=== PATIENT | female | born 2000 | race Hispanic/Latino ===

== ENCOUNTER 2024-10-12 16:36 | Emergency (ER) | payer OTHER ==
[~2024-10-12 16:36] MED LIST: Iopamidol 370 76% 100 ML VIAL ONE
[2024-10-12] MEDS ORDERED: Acetaminophen 500 MG TAB ONE (18:04)
[2024-10-12 18:42] LABS: #Basophils 0.04 10x3/uL (0.0-0.2); #Eosinophils 0.04 10x3/uL (0.0-0.5); #Monocytes 0.48 10x3/uL (0.0-1.1); #Neutrophils 7.21 10x3/uL (1.5-8.4); %Basophils 0.5 % (0.0-2.0); %Eosinophils 0.5 % (0.0-6.0); %Lymphocytes 5.1 % (18.0-47.0); %Monocytes 5.8 % (0.0-10.0); %Neutrophils 87.1 % (40.0-75.0); ALT (SGPT) 29 U/L (8-55); AST (SGOT) 22 U/L (5-34); Albumin 2.9 g/dL (3.5-5.0); Alkaline Phosphatase 168 U/L (40-110); Anion Gap 15 mmol/L (10-20); BUN (Urea Nitrogen) 7 mg/dL (7.0-18.7); Bilirubin, Total 0.2 mg/dL (0.2-1.2); Calc. Creatinine Clearance 0 mL/min (70-130); Calcium 8.8 mg/dL (7.8-10.44); Carbon Dioxide 20 mmol/L (22-29); Chloride 103 mmol/L (98-107); Estimated GFR 125; Globulin 3.7 g/dL (2.4-3.5); Glucose 91 mg/dL (70-105); Hematocrit 36.7 % (34.9-44.5); Mean Corpuscular HGB CONC 32.7 g/dL (32.0-36.0); Mean Corpuscular Hemoglobin 25.3 pg (27.0-33.0); Mean Corpuscular Volume 77.3 fL (81.6-98.3); Mean Platelet Volume 11.5 fL (7.4-10.4); Platelet Count 261 10x3/uL (150-450); Potassium 3.8 mmol/L (3.5-5.1); Protein, Total 6.6 g/dL (6.0-8.3); RBC Distribution Width 13.2 % (11.5-14.5); Red Blood Cell (RBC) Count 4.75 10x6/uL (3.90-5.03); Sodium 134 mmol/L (136-145); Troponin I Less than 0.010 ng/mL (< 0.028); White Blood Cell (WBC) Count 8.3 10x3/uL (3.5-10.5)
== END 2024-10-12 21:04 | disposition home or self-care (01) ==
LOC: CSHERS 16:36
DX: O99.891 Other specified diseases and conditions complicating pregnancy (principal); J11.1 Influenza due to unidentified influenza virus with other respiratory manifestations; Z3A.32 32 weeks gestation of pregnancy
CPT/HCPCS: 71046; 71275; 80053; 84484; 85025; 85379; 87428; 93005; Q9967

== ENCOUNTER 2024-11-09 15:22 | Emergency (ER) | payer OTHER ==
[2024-11-09] MEDS ORDERED: hydrALAZINE 20 MG/ML VIAL ONE (16:16)
[2024-11-09 16:25] LABS: #Basophils 0.05 10x3/uL (0.0-0.2); #Eosinophils 0.21 10x3/uL (0.0-0.5); #Monocytes 0.48 10x3/uL (0.0-1.1); #Neutrophils 7.39 10x3/uL (1.5-8.4); %Basophils 0.5 % (0.0-2.0); %Lymphocytes 22.4 % (18.0-47.0); %Monocytes 4.5 % (0.0-10.0); %Neutrophils 69.4 % (40.0-75.0); Hematocrit 37.4 % (34.9-44.5); Hemoglobin 11.7 g/dL (12.0-15.5); Mean Corpuscular HGB CONC 31.3 g/dL (32.0-36.0); Mean Corpuscular Hemoglobin 23.9 pg (27.0-33.0); Mean Corpuscular Volume 76.5 fL (81.6-98.3); Mean Platelet Volume 10.6 fL (7.4-10.4); Platelet Count 405 10x3/uL (150-450); RBC Distribution Width 13.9 % (11.5-14.5); Red Blood Cell (RBC) Count 4.89 10x6/uL (3.90-5.03); White Blood Cell (WBC) Count 10.65 10x3/uL (3.5-10.5)
[2024-11-09 16:36] LABS: Bilirubin Neg (Negative); Blood, Urine 250 (Negative); Clarity Slightly Cloudy (Clear); Glucose, Urine (Dipstick) Normal (Negative); Ketone, Urine Negative (Negative); Leukocyte 500 (Negative); Nitrite Negative (Negative); Protein, Urine (Dipstick) 100 mg/dl (Neg-Trace); Specific Gravity, Urine 1.005 (1.005-1.030); Urobilinogen Normal mg/dL (Less than 2)
[2024-11-09] MEDS ORDERED: Labetalol HCl 100 MG/20 ML VIAL SLOW IVP PRN ×2 (16:38)
[2024-11-09] MEDS ORDERED: hydrALAZINE 20 MG/ML VIAL SLOW IVP PRN ×2 (16:38)
[2024-11-09] MEDS ORDERED: Ondansetron PF 4 MG/2 ML Vial IVP PRN (16:42)
[2024-11-09 16:43] LABS: Bacteria/HPF 1+ HPF (None Seen); CAUTI Indications for Culture Pregnancy; RBC/HPF Greater than 50 HPF (0-3)
[2024-11-09 16:44] LABS: Renal Epithelial 0-3 HPF (None Seen)
[2024-11-09 16:45] LABS: Urine Culture Reflex Yes Yes
[2024-11-09 16:46] LABS: ALT (SGPT) 23 U/L (Less than 34); AST (SGOT) 27 U/L (11-34); Albumin 3.4 g/dL (3.1-4.5); Alkaline Phosphatase 164 U/L (40-110); Anion Gap 18 mmol/L (10-20); BUN (Urea Nitrogen) 14 mg/dL (7.0-18.7); Bilirubin, Total 0.3 mg/dL (0.3-1.2); Calc. Creatinine Clearance 0 mL/min (70-130); Calcium 10.1 mg/dL (7.8-10.44); Carbon Dioxide 18 mmol/L (22-29); Chloride 108 mmol/L (98-107); Estimated GFR 109; Globulin 3.9 g/dL (2.4-3.5); Glucose 99 mg/dL (70-105); Magnesium 1.8 mg/dL (1.6-2.6); Potassium 4.5 mmol/L (3.5-5.1); Protein, Total 7.3 g/dL (6.0-8.3); Sodium 139 mmol/L (136-145)
[2024-11-09] MEDS ORDERED: Calcium Gluc 4.6 MEQ/10 ML (100 MG/ML) SLOW IVP PRN (16:49)
[2024-11-09] MEDS ORDERED: NIFEdipine XL 30 MG ER.TAB PO SCH (17:00)
[2024-11-09] MEDS ORDERED: Magnesium Sulfate 20 gm/500 ml 20 GM/500 ML BAG IVPB SCH (17:00)
[2024-11-09] MEDS ORDERED: Acetaminophen 500 MG TAB PO SCH (17:30)
[2024-11-10] MEDS ORDERED: NIFEdipine XL 30 MG ER.TAB PO SCH (09:00)
== END 2024-11-09 17:01 ==
LOC: CSHERS 15:22
DX: O14.95 Unspecified pre-eclampsia, complicating the puerperium (principal)
CPT/HCPCS: 80053; 81001; 83735; 85025; 87086; 93005; 96374; J0360

== ENCOUNTER 2024-11-09 17:01 | Inpatient (IN) | payer OTHER ==
[2024-11-09] MEDS: Magnesium Sulfate 20 gm/500 ml 20 GM/500 ML BAG ONE (17:21)
[2024-11-09] MEDS ORDERED: Lorazepam 2 MG/ML VIAL SLOW IVP PRN (17:28)
[2024-11-09] MEDS ORDERED: hydrALAZINE 20 MG/ML VIAL SLOW IVP PRN (17:28)
[2024-11-09] MEDS ORDERED: Promethazine HCl 25 MG/ML VIAL IM PRN (17:28)
[2024-11-09] MEDS ORDERED: Ondansetron PF 4 MG/2 ML Vial IVP PRN (17:28)
[2024-11-09] MEDS ORDERED: Calcium Gluc 4.6 MEQ/10 ML (100 MG/ML) SLOW IVP PRN (17:28)
[2024-11-09] MEDS ORDERED: Labetalol HCl 100 MG/20 ML VIAL SLOW IVP PRN ×2 (17:28)
[2024-11-09] MEDS: Labetalol HCl 100 MG/20 ML VIAL SLOW IVP PRN (17:31)
[2024-11-09] MEDS: Acetaminophen 500 MG TAB PO SCH (18:04)
[2024-11-09] MEDS: NIFEdipine XL 30 MG ER.TAB PO SCH (18:04)
[2024-11-09] MEDS: Labetalol HCl 100 MG/20 ML VIAL ONE (18:24)
[2024-11-09 18:48] LABS: Protein, Urine Random Quant Less than 10 mg/dL (1-14)
[2024-11-10] MEDS: Magnesium Sulfate 20 gm/500 ml 20 GM/500 ML BAG IVPB SCH (01:23)
[2024-11-10 06:20] VITALS: BMI 36.3
[2024-11-10] MEDS: NIFEdipine XL 30 MG ER.TAB PO SCH (09:06)
[2024-11-10 18:44] LABS: Troponin I 0.014 ng/mL (< 0.028)
[2024-11-11] MEDS: Enoxaparin 40 MG (0.4 mL) SYRINGE SC SCH (07:53)
[2024-11-11 11:28] VITALS: BP 116/72; TEMP 98.4
== END 2024-11-11 12:19 | disposition home or self-care (01) | DRG 776 ==
LOC: CSHLD 17:01 → UNDOADMIN 17:01 → CSHLD 11-10 09:07 → CSHPED 11-10 18:23
PROVIDERS: ADMIT Obstetrics & Gynecology; ATTEND Obstetrics & Gynecology
DX: O14.15 Severe pre-eclampsia, complicating the puerperium (principal); O13.5 Gestational [pregnancy-induced] hypertension without significant proteinuria, complicating the puerperium; O99.893 Other specified diseases and conditions complicating puerperium; Z79.899 Other long term (current) drug therapy
CPT/HCPCS: 36415; 51702; 71045; 80053; 81001; 82570; 83735; 84156; 84484; 85025; 87086; 93005; 93010; 93970; 96374; 99285; J0360; J3475

== ENCOUNTER 2025-07-31 13:43 | Emergency (ER) | payer OTHER ==
[2025-07-31 16:57] LABS: #Basophils 0.04 10x3/uL (0.0-0.2); #Eosinophils Less than 0.03 10x3/uL (0.0-0.5); #Monocytes 0.48 10x3/uL (0.0-1.1); #Neutrophils 12.10 10x3/uL (1.5-8.4); %Basophils 0.3 % (0.0-2.0); %Eosinophils 0.1 % (0.0-6.0); %Lymphocytes 13.2 % (18.0-47.0); %Monocytes 3.3 % (0.0-10.0); %Neutrophils 82.6 % (40.0-75.0); Hematocrit 42.4 % (34.9-44.5); Hemoglobin 12.7 g/dL (12.0-15.5); Mean Corpuscular Hemoglobin 21.4 pg (27.0-33.0); Mean Corpuscular Volume 71.5 fL (81.6-98.3); Platelet Count 409 10x3/uL (150-450); Red Blood Cell (RBC) Count 5.93 10x6/uL (3.90-5.03); White Blood Cell (WBC) Count 14.65 10x3/uL (3.5-10.5)
[2025-07-31 17:01] LABS: ALT (SGPT) 12 U/L (Less than 34); AST (SGOT) 15 U/L (11-34); Albumin 4.3 g/dL (3.1-4.5); Alkaline Phosphatase 111 U/L (40-110); Anion Gap 13 mmol/L (10-20); BUN (Urea Nitrogen) 8 mg/dL (7.0-18.7); Bilirubin, Total 0.3 mg/dL (0.3-1.2); Calc. Creatinine Clearance 0 mL/min (70-130); Calcium 10.0 mg/dL (7.8-10.44); Carbon Dioxide 24 mmol/L (22-29); Chloride 106 mmol/L (98-107); Globulin 3.7 g/dL (2.4-3.5); Glucose 131 mg/dL (70-105); Magnesium 1.8 mg/dL (1.6-2.6); Potassium 4.0 mmol/L (3.5-5.1); Sodium 139 mmol/L (136-145)
[2025-07-31 17:18] LABS: BHCG - Serum Negative (NEGATIVE); Pregs Control Background? CLEAR/WHITE (CLR/WHITE); Pregs Control Bar Appear? YES (CONTROL BAR)
[2025-07-31 17:27] LABS: Glucose, Urine (Dipstick) Normal (Negative); Leukocyte 25 (Negative); Protein, Urine (Dipstick) Negative (Neg-Trace); Specific Gravity, Urine 1.010 (1.005-1.030)
[2025-07-31 17:54] LABS: Bacteria/HPF None Seen HPF (None Seen); CAUTI Indications for Culture Alt mental st,lethar; RBC/HPF None Seen HPF (0-3); WBC/HPF 0-3 HPF (0-3)
[2025-07-31 17:55] LABS: Urine Culture Reflex No No
== END 2025-07-31 18:39 | disposition home or self-care (01) ==
LOC: CSHERS 13:43
DX: N39.0 Urinary tract infection, site not specified (principal); E86.0 Dehydration; I10 Essential (primary) hypertension
CPT/HCPCS: 36415; 80053; 81001; 83735; 84703; 85025; 93005; 96360; 96361; 99285